=== PATIENT | male | born 1995 | race Caucasian/White ===

== ENCOUNTER 2023-01-19 14:16 | Emergency (ER) | payer MEDICAID ==
[~2023-01-19] VITALS: Ht 185.4 cm; Wt 89.0 kg
[2023-01-19 14:40] VITALS: TEMP 98.3
[2023-01-19] MEDS ORDERED: SULF1TAB49 PO (16:47)
[2023-01-19] MEDS ORDERED: CEPH-585 PO (16:47)
[2023-01-19] MEDS ORDERED: NAPR-56 PO (16:47)
[2023-01-19] MEDS ORDERED: ketorolac trometh inj. 60 MG/2 ML VIAL IM ONE (16:50)
[2023-01-19 17:06] VITALS: BP 127/72; PULSE 59; RESP 18; O2SAT 96
--- NOTE | 2023-01-19 17:59 | NUR ---
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
== END 2023-01-19 17:07 | disposition home or self-care (01) ==
LOC: ER 14:17
DX: L03.115 Cellulitis of right lower limb (principal); Z88.1 Allergy status to other antibiotic agents; Z88.8 Allergy status to other drugs, medicaments and biological substances; Z79.899 Other long term (current) drug therapy
CPT/HCPCS: 96372; 99283; J1885

== ENCOUNTER 2024-02-14 18:08 | Emergency (ER) | payer MEDICAID ==
[~2024-02-14] VITALS: Ht 175.3 cm; Wt 93.3 kg
[2024-02-14 18:18] VITALS: BP 135/88; PULSE 60; RESP 16; TEMP 97.8; O2SAT 96
== END 2024-02-14 19:30 | disposition left against medical advice (07) ==
LOC: ER 18:08
DX: M54.2 Cervicalgia (principal); M54.89 Other dorsalgia; Z53.21 Procedure and treatment not carried out due to patient leaving prior to being seen by health care provider; Z88.1 Allergy status to other antibiotic agents